=== PATIENT | male | born 1945 ===

== ENCOUNTER 2016-08-21 19:07 | Emergency (ER) | payer MEDICARE ==
[2016-08-21] MEDS ORDERED: SODIUM CHLORIDE 0.9% 1,000 ML ONE (19:41)
[2016-08-21] MEDS ORDERED: ACETAMINOPHEN 500 MG TABLET ONE (19:41)
[2016-08-21] MEDS ORDERED: ONDANSETRON 4 MG/2ML 2 ML VIAL ONE (19:41)
[2016-08-21] MEDS ORDERED: IBUPROFEN 600 MG TABLET ONE (19:42)
[2016-08-21] MEDS ORDERED: PANTOPRAZOLE SODIUM 40 MG VIAL IV ONE (19:42)
[2016-08-21 19:59] LABS: ABSOLUTE NEUTROPHIL COUNT 6.1 K/mm3 (1.8-7.7); BASO % 0.1 % (0.2-1.0); HEMATOCRIT 43.7 % (32.0-52.0); HEMOGLOBIN 14.5 gm/l (14.0-18.0); IMM NEUT% 0.3 % (0-1); LYMPH # 0.7 (1.0-4.8); LYMPH % 10.1 % (15-45); MEAN CELL VOLUME 84.9 fl (80.0-94.0); MEAN CORPUSCULAR HEMOGLOBIN 28.2 pg (27.0-31.0); MEAN CORPUSCULAR HGB CONC 33.2 g/dl (33.0-37.0); MEAN PLATELET VOLUME 12.5 fl (7.4-10.4); MONO # 0.5 (0.0-0.8); MONO % 6.2 % (4-12); NEUT % 83.3 % (43-75); PLATELET COUNT 126 K/mm3 (130-400); RED CELL DISTRIBUTION WIDTH 15.5 % (11.5-14.5)
[2016-08-21 20:11] LABS: ALB/GLOB RATIO 1.3 (>1.0); ALBUMIN 3.7 gm/dL (3.5-5.7); CALCIUM 8.5 mg/dL (8.6-10.3)
--- NOTE | 2016-08-21 20:52 | RAD ---
08/21/2016 8:47 PM CHEST-AP BEDSIDE History: Fever Comparison: None Findings: Single AP view of the chest is obtained. The lungs are clear with out effusion or pneumothorax. The cardiomediastinal silhouette is unremarkable.. The osseous structures are intact.. Low volumes limit the study. IMPRESSION: No acute intrathoracic process.
[2016-08-21 21:07] LABS: SPECIFIC GRAVITY 1.015 (1.001-1.030); URINE BILIRUBIN NEGATIVE (NEGATIVE); URINE BLOOD NEGATIVE (NEGATIVE); URINE GLUCOSE (UA) NEGATIVE (NEGATIVE); URINE LEUKOCYTE ESTERASE NEGATIVE (NEGATIVE); URINE NITRITE NEGATIVE (NEGATIVE); URINE PROTEIN NEGATIVE (NEGATIVE); URINE UROBILINOGEN NORMAL (0-1 mg/dl)
[2016-08-21 21:11] LABS: URINE APPEARANCE CLEAR; URINE COLOR YELLOW
--- NOTE | 2016-08-22 08:01 | RAD ---
CHEST - 2 VIEWS COMPARISON: Chest 2 views, 08/21/2016 HISTORY: Fever and diarrhea. FINDINGS: Views: Frontal and lateral chest Lungs: Normal Heart and vessels: No acute finding. Gated thoracic aorta. Trachea and bronchi: Normal Mediastinum and ujn: Normal Costophrenic sulci: Normal Chest wall and bones: No acute finding. Degenerative changes of the spine. Upper abdomen: Normal. IMPRESSION: No acute finding. Atherosclerosis of the thoracic aorta and spondylosis of the thoracic spine.
== END 2016-08-21 21:57 | disposition home or self-care (01) ==
LOC: ED 19:07
DX: B34.9 Viral infection, unspecified (principal); R50.9 Fever, unspecified; R10.13 Epigastric pain; R11.10 Vomiting, unspecified
CPT/HCPCS: 83605; 83690; 85025; 87040 ×2; 80053; 81003; 84484; 71020; 71010; 87804; 96375; 99284 ×2; 96374; 51702; 93005; A9270 ×2; C9113; J2405; J7030